=== PATIENT | female | born 1990 | race Caucasian/White ===

== ENCOUNTER → 2017-05-24 | Outpatient (CLI) | payer OTHER ==
[~2017-05-24] MED LIST: DOXY100T PO; Z.0.NO CURRENT MEDS; ZOFR4TAB3 SL
== END ==
LOC: HPND 07:43
PROVIDERS: ATTEND Obstetrics & Gynecology
DX: O26.893 Other specified pregnancy related conditions, third trimester (principal); R10.32 Left lower quadrant pain
CPT/HCPCS: 76816

== ENCOUNTER 2017-06-30 05:02 | Inpatient (IN) | payer OTHER ==
[~2017-06-30] VITALS: Ht 167.6 cm; Wt 158.8 kg
[2017-06-30] VITALS (138 sets, daily range): BP systolic 103–153; BP diastolic 35–100; PULSE 67–129; RESP 18; TEMP 97.6–99.1
[2017-06-30] MEDS ORDERED: OXYTOCIN 30 UNITS/NS 500ML PREMIX IV SCH (05:30)
[2017-06-30] MEDS ORDERED: LIDOCAINE HCL 1% 50 ML VIAL I-DERMAL PRN (05:30)
[2017-06-30] MEDS ORDERED: NS 500 ML BOLUS IV PRN (05:30)
[2017-06-30] MEDS ORDERED: LACTATED RINGER'S 1000 ML BOLUS IV PRN (05:30)
[2017-06-30] MEDS ORDERED: LIDOCAINE HCL 1% 50 ML VIAL INFIL PRN (05:30)
[2017-06-30] MEDS: LACTATED RINGER'S 1000 ML IV SCH ×2 (05:30→20:00)
[2017-06-30] MEDS ORDERED: ONDANSETRON HCL 4 MG/2 ML VIAL IV PRN (05:30)
[2017-06-30] MEDS ORDERED: NS 1000 ML IV PRN (05:30)
[2017-06-30] MEDS ORDERED: CITRIC ACID-SODIUM CITRATE LIQ 30 ML UDC PO SCH (05:30)
[2017-06-30] MEDS ORDERED: OXYTOCIN 30 UNITS 500ML PREMIX IV ONE (05:30)
[2017-06-30] MEDS ORDERED: MINERAL OIL 10 ML VIAL TOPICAL PRN (05:30)
[2017-06-30] MEDS ORDERED: PREN29TA PO (06:08)
[2017-06-30 07:06] LABS: AUTOMATED NEUTROPHIL # 11.4 TH/MM3 (1.8-7.7); BASOPHIL % 0.3 % (0.0-2.0); EOSINOPHIL # 0.2 TH/MM3 (0-0.4); EOSINOPHIL % 1.4 % (0.0-4.0); HEMO FLAGS DIFF FINAL; LYMPH % 19.2 % (9.0-44.0); MEAN CELL VOLUME 78.9 FL (80.0-100.0); MEAN CORPUSCULAR HEMOGLOBIN 25.8 PG (27.0-34.0); MEAN CORPUSCULAR HGB CONC 32.7 % (32.0-36.0); NEUT % 72.1 % (16.0-70.0); PLATELET COUNT 242 TH/MM3 (150-450); RED BLOOD COUNT 4.44 MIL/MM3 (4.00-5.30); RED CELL DISTRIBUTION WIDTH 16.2 % (11.6-17.2); WHITE BLOOD COUNT 15.8 TH/MM3 (4.0-11.0)
[2017-06-30 07:36] LABS: BLOOD, URINE NEG (NEG); CALCIUM OXALATE CRYSTALS,URINE MOD /hpf; COMMENT (UR) CULTURE INDICATED; CULTURE IF INDICATED CULTURE INDICATED; GLUCOSE,URINE NEG (NEG); KETONE, URINE NEG (NEG); MUCUS URINE FEW /lpf (OCC); NITRITE,URINE NEG (NEG); SQUAMOUS EPITHELIAL CELL URINE 13 /hpf (0-5); TRANSITIONAL EPI CELLS, URINE <1 /hpf; URINE COLOR YELLOW (YELLW/STRAW)
[2017-06-30 07:39] LABS: BACTERIA, URINE FEW /hpf
[2017-06-30] MEDS ORDERED: ePHEDrine/NS 25 MG/5 ML SYR ONE (09:20)
[2017-06-30] MEDS ORDERED: fentaNYL 2MCG-BUPIV 0.125% INJ 100 ML ONE (09:20)
[2017-06-30] MEDS ORDERED: fentaNYL 2MCG-BUPIV 0.125% 100 ML EPIDURAL SCH (10:45)
[2017-06-30] MEDS ORDERED: NO SYSTEM NARCOTICS PRN (10:45)
[2017-06-30] MEDS ORDERED: ePHEDrine/NS 25 MG/5 ML SYR IV PRN (10:45)
[2017-06-30] MEDS ORDERED: DO NOT ADMINISTER ANTICOAGULANTS PRN (10:45)
[2017-06-30] MEDS ORDERED: LIDOCAINE HCL 1.5% PF SOLN 20 ML AMP ONE (19:09)
[2017-06-30] MEDS ORDERED: OXYTOCIN 10 UNIT/ML AMP ONE (23:18)
[2017-06-30] MEDS ORDERED: ceFAZolin INJ 1,000 MG VIAL ONE (23:18)
[2017-07-01] VITALS (13 sets, daily range): BP systolic 104–137; BP diastolic 51–78; PULSE 84–106; RESP 15–26; TEMP 98.2–99.1; O2SAT 96–100
[2017-07-01] MEDS ORDERED: OXYTOCIN 30 UNITS-500ML PREMIX 500 ML IV ONE (00:45)
[2017-07-01] MEDS ORDERED: EPIDURAL-NO SYSTEMIC NARCOTICS PRN (00:45)
[2017-07-01] MEDS ORDERED: KETOROLAC TROMETHAMINE 60 MG/2 ML (IM) VIAL IM PRN ×2 (00:45)
[2017-07-01] MEDS ORDERED: EPIDURAL-NALOXONE HCL 0.4 MG/ML AMP IV PRN (00:45)
[2017-07-01] MEDS ORDERED: EPIDURAL-DIPHENHYDRAMINE HCL 50 MG/ML VIAL IV PUSH PRN (00:45)
[2017-07-01] MEDS ORDERED: EPIDURAL-DIPHENHYDRAMINE HCL 50 MG CAP PO PRN (00:45)
[2017-07-01] MEDS ORDERED: oxyCODONE/ACETAMINOPHEN 5 MG/325 MG TAB PO PRN (00:45)
[2017-07-01] MEDS ORDERED: SIMETHICONE 80 MG CHEWABLE TAB PO PRN (00:45)
[2017-07-01] MEDS ORDERED: ONDANSETRON HCL 4 MG/2 ML VIAL IV PUSH PRN (00:45)
[2017-07-01] MEDS ORDERED: SODIUM CHLORIDE 0.9% FLUSH 10 ML FLUSH IV FLUSH PRN (00:45)
[2017-07-01] MEDS ORDERED: EPIDURAL-DO NOT ADMINISTER ANTICOAGULANTS PRN (00:45)
[2017-07-01] MEDS ORDERED: MORPHINE SULFATE PF 5 MG/10 ML VIAL ONE (00:51)
--- NOTE | 2017-07-01 00:51 | PD.LABORPN ---
Subjective Subjective Pt comfortable after second epidural placed Objective Vital Signs Vital Signs Date Time Temp Pulse Resp B/P (MAP) Pulse Ox O2 Delivery O2 Flow Rate FiO2 06/30/17 23:10 87 06/30/17 23:05 97 06/30/17 23:00 85 06/30/17 23:00 88 129/79 (96) 06/30/17 22:42 18 06/30/17 22:40 104 06/30/17 22:35 80 06/30/17 22:30 81 06/30/17 22:30 82 131/67 (88) 06/30/17 22:10 84 06/30/17 22:05 81 06/30/17 22:01 82 118/66 (83) 06/30/17 22:00 85 06/30/17 21:45 18 06/30/17 21:30 78 06/30/17 21:30 81 136/66 (89) 06/30/17 20:46 105 128/64 (85) 06/30/17 20:45 18 06/30/17 20:45 102 06/30/17 20:40 116 125/65 (85) 06/30/17 20:40 107 06/30/17 20:35 108 110/67 (81) 06/30/17 20:35 102 06/30/17 20:30 108 121/68 (85) 06/30/17 20:30 99 06/30/17 20:26 118 06/30/17 20:26 122/60 (80) 06/30/17 20:25 106 06/30/17 20:20 119/62 (81) 06/30/17 20:20 120 06/30/17 20:20 102 06/30/17 20:15 109 110/49 (69) 06/30/17 20:15 114 06/30/17 20:11 129 108/35 (59) 06/30/17 20:10 95 06/30/17 20:06 88 128/83 (98) 06/30/17 20:05 92 06/30/17 20:00 92 147/92 (110) 06/30/17 20:00 87 06/30/17 19:56 96 153/86 (108) 06/30/17 19:55 87 06/30/17 19:51 84 150/86 (107) 06/30/17 19:50 87 06/30/17 19:46 97 150/87 (108) 06/30/17 19:45 90 06/30/17 19:41 119 117/60 (79) 06/30/17 19:36 97.6 85 18 124/71 (88) 06/30/17 18:02 18 06/30/17 18:00 89 135/77 (96) 06/30/17 17:21 91 122/64 (83) 06/30/17 17:05 18 06/30/17 17:01 83 126/59 (81) Objective Pelvic Exam: Cervix: [5 /100/-2- no change from prior exam at 430 ] Dilatation: [-] Effacement: [-] Station: [-] Presentation: [-] Membranes: [intact or ruptured] Uterine Contractions: [q 2-4 min at >50 mmhg-] FHT's: Category: [-] Baseline: [-] Reactive: [reactive, occ lates, occ variable- overall reassuring-] Variability: [-] Decels: [-] Weeks Gestation: 40 Gest Age Assessed Date: Jul 01, 2017 Gest Age Assessed Time: 09:00 Pt started active labor?: No Medical induction of labor?: Yes Medical induction start date: Jun 30, 2017 Medical induction start time: 05:00 Artificial rupture of membrane: Yes Artificial ROM date: Jun 30, 2017 Artifical ROM time: 07:30 Assessment/Plan Assessment and Plan 27 yo wf G1 at 40 wks induction with arrest of active phase of labor with good labor and pain control 1. rec c/s-reviewed with pt and family rec for c/s and they agree Joanne Doll MD Jul 01, 2017 00:51
[2017-07-01] MEDS ORDERED: METOCLOPRAMIDE HCL 10 MG/2 ML VIAL IV ONE (01:33)
[2017-07-01] MEDS ORDERED: LACTATED RINGER'S 1000 ML INJ 1,000 ML IV ONE (01:33)
[2017-07-01] MEDS ORDERED: LIDOCAINE HCL 2% 20 ML VIAL NERV BLOCK ONE (01:33)
[2017-07-01] MEDS ORDERED: LACTATED RINGER'S 1000 ML INJ 1,000 ML IV SCH ×2 (05:44→15:30)
--- NOTE | 2017-07-01 07:58 | HHI.OB ---
Subjective Post Day: 1 Remarks PPD # 0 s/p LTCS due to arrest of labor doing well Objective Vitals/I&O Vital Signs Date Time Temp Pulse Resp B/P (MAP) Pulse Ox O2 Delivery O2 Flow Rate FiO2 07/01/17 03:10 99.1 18 07/01/17 03:10 97 121/68 (85) 07/01/17 02:35 98.2 18 133/77 (95) 07/01/17 02:15 87 18 126/76 (93) 99 07/01/17 02:01 88 18 132/74 (93) 07/01/17 02:01 100 07/01/17 01:47 18 100 07/01/17 01:47 91 137/69 (91) 07/01/17 01:35 84 18 135/65 (88) 100 07/01/17 01:18 100 07/01/17 01:18 85 18 125/67 (86) 07/01/17 01:02 84 18 122/64 (83) 100 07/01/17 00:50 84 26 106/51 (69) 07/01/17 00:50 96 07/01/17 00:50 98.2 06/30/17 23:15 18 06/30/17 23:10 87 06/30/17 23:05 97 06/30/17 23:00 85 06/30/17 23:00 88 129/79 (96) 06/30/17 22:42 18 06/30/17 22:40 104 06/30/17 22:35 80 06/30/17 22:30 81 06/30/17 22:30 82 131/67 (88) 06/30/17 22:10 84 06/30/17 22:05 81 06/30/17 22:01 82 118/66 (83) 06/30/17 22:00 85 06/30/17 21:45 18 06/30/17 21:30 78 06/30/17 21:30 81 136/66 (89) 06/30/17 20:46 105 128/64 (85) 06/30/17 20:45 18 06/30/17 20:45 102 06/30/17 20:40 116 125/65 (85) 06/30/17 20:40 107 06/30/17 20:35 108 110/67 (81) 06/30/17 20:35 102 06/30/17 20:30 108 121/68 (85) 06/30/17 20:30 99 06/30/17 20:26 118 06/30/17 20:26 122/60 (80) 06/30/17 20:25 106 06/30/17 20:20 119/62 (81) 06/30/17 20:20 120 06/30/17 20:20 102 06/30/17 20:15 109 110/49 (69) 06/30/17 20:15 114 06/30/17 20:11 129 108/35 (59) 06/30/17 20:10 95 06/30/17 20:06 88 128/83 (98) 06/30/17 20:05 92 06/30/17 20:00 92 147/92 (110) 06/30/17 20:00 87 06/30/17 19:56 96 153/86 (108) 06/30/17 19:55 87 06/30/17 19:51 84 150/86 (107) 06/30/17 19:50 87 06/30/17 19:46 97 150/87 (108) 06/30/17 19:45 90 06/30/17 19:41 119 117/60 (79) 06/30/17 19:36 97.6 85 18 124/71 (88) 06/30/17 18:02 18 06/30/17 18:00 89 135/77 (96) 06/30/17 17:21 91 122/64 (83) 06/30/17 17:05 18 06/30/17 17:01 83 126/59 (81) 06/30/17 16:45 18 06/30/17 16:31 83 126/66 (86) 06/30/17 16:15 99.1 18 06/30/17 16:01 81 116/65 (82) 06/30/17 15:43 18 06/30/17 15:30 89 130/71 (90) 06/30/17 15:30 90 06/30/17 15:15 18 06/30/17 15:10 81 06/30/17 15:05 83 06/30/17 15:00 80 06/30/17 15:00 99.1 06/30/17 15:00 18 06/30/17 15:00 83 107/57 (74) 06/30/17 14:45 18 06/30/17 14:40 83 06/30/17 14:35 80 06/30/17 14:31 86 120/60 (80) 06/30/17 14:30 80 06/30/17 14:15 18 06/30/17 14:10 81 06/30/17 14:05 82 06/30/17 14:01 87 128/65 (86) 06/30/17 14:00 98 18 06/30/17 13:55 84 06/30/17 13:50 82 06/30/17 13:45 76 125/65 (85) 06/30/17 13:45 77 06/30/17 13:45 18 06/30/17 13:40 82 06/30/17 13:35 78 06/30/17 13:30 78 06/30/17 13:30 85 127/72 (90) 06/30/17 13:30 18 06/30/17 13:25 83 06/30/17 13:20 93 06/30/17 13:15 75 131/82 (98) 06/30/17 13:15 80 06/30/17 13:15 18 06/30/17 13:10 89 06/30/17 13:05 78 06/30/17 13:00 75 122/70 (87) 06/30/17 13:00 18 06/30/17 13:00 73 06/30/17 12:55 75 06/30/17 12:50 77 06/30/17 12:45 74 120/69 (86) 06/30/17 12:45 18 06/30/17 12:45 76 06/30/17 12:40 73 06/30/17 12:35 73 06/30/17 12:30 71 119/73 (88) 06/30/17 12:30 74 06/30/17 12:30 18 06/30/17 12:25 72 06/30/17 12:20 74 17 12:15 67 06/30/17 12:15 74 117/71 (86) 06/30/17 12:15 18 06/30/17 12:10 73 06/30/17 12:05 70 06/30/17 12:01 78 104/72 (83) 06/30/17 12:00 69 06/30/17 12:00 18 06/30/17 11:55 82 06/30/17 11:50 75 06/30/17 11:45 18 06/30/17 11:45 80 06/30/17 11:45 77 119/70 (86) 06/30/17 11:40 80 06/30/17 11:35 85 06/30/17 11:30 86 114/59 (77) 06/30/17 11:30 81 06/30/17 11:30 18 06/30/17 11:25 82 06/30/17 11:20 77 06/30/17 11:15 83 06/30/17 11:15 81 122/69 (86) 06/30/17 11:05 18 06/30/17 11:04 82 126/71 (89) 06/30/17 11:00 18 06/30/17 11:00 81 06/30/17 10:55 81 06/30/17 10:50 82 06/30/17 10:47 86 103/47 (65) 06/30/17 10:45 82 06/30/17 10:42 18 06/30/17 10:40 80 06/30/17 10:35 95 06/30/17 10:31 77 115/61 (79) 06/30/17 10:30 82 18 06/30/17 10:25 84 06/30/17 10:20 83 06/30/17 10:16 89 128/65 (86) 06/30/17 10:15 88 06/30/17 10:14 18 06/30/17 10:10 89 06/30/17 10:05 90 06/30/17 10:01 91 125/63 (83) 06/30/17 10:00 91 06/30/17 10:00 97.9 06/30/17 09:56 89 126/60 (82) 06/30/17 09:55 18 06/30/17 09:55 101 06/30/17 09:51 88 118/93 (101) 06/30/17 09:50 89 06/30/17 09:46 111 117/62 (80) 06/30/17 09:45 18 06/30/17 09:45 97 06/30/17 09:41 108 133/89 (104) 06/30/17 09:36 117 136/99 (111) 06/30/17 09:35 104 06/30/17 09:31 125 142/100 (114) 06/30/17 09:30 119 06/30/17 09:30 18 06/30/17 09:28 114 143/98 (113) 06/30/17 09:00 18 Objective Remarks GENERAL: Well-nourished, well-developed patient. CARDIOVASCULAR: Regular rate and rhythm without murmurs, gallops, or rubs. RESPIRATORY: Breath sounds equal bilaterally. No accessory muscle use. ABDOMEN/GI: Abdomen soft, non-tender. Fundus: Firm, non-tender at umbilicus....inc healing nicely GENITOURINARY: Light to moderate bleeding. EXTREMITIES: No cyanosis or edema, non-tender, without signs of DVT. Medications and IVs Current Medications Medications (Trade) Dose Ordered Sig/Yara Route Start Time Stop Time Status Last Admin Miscellaneous Information No systemic narcotics to be given except... UNSCH PRN .XX 06/30/17 10:45 07/01/17 10:44 Miscellaneous Information DO NOT ADMINISTER ANY ANTICOAGUL... UNSCH PRN .XX 06/30/17 10:45 07/01/17 10:44 Miscellaneous Information NO SYSTEMIC NARCOTICS TO BE GIVEN FO... UNSCH PRN .XX 07/01/17 00:45 07/02/17 00:44 (Narcan Inj) 0.4 mg UNSCH PRN IV 07/01/17 00:45 07/02/17 00:44 (Benadryl Inj) 25 mg Q6H PRN IV PUSH 07/01/17 00:45 07/02/17 00:44 (Benadryl) 50 mg Q6H PRN PO 07/01/17 00:45 07/02/17 00:44 Miscellaneous Information ALL NURSING DEPARTMENTS UNSCH PRN .XX 07/01/17 00:45 07/02/17 00:44 Lactated Ringer's 1,000 ml @ 100 mls/hr Q10H IV 07/01/17 05:44 07/02/17 01:43 Oxytocin 500 ml @ 100 mls/hr UNSCH X1 PRN IV 07/01/17 10:45 07/02/17 10:44 (NS Flush) 2 ml BID IV FLUSH 07/01/17 09:00 (NS Flush) 2 ml UNSCH PRN IV FLUSH 07/01/17 00:45 (Mylicon Chew) 80 mg QID PRN PO 07/01/17 00:45 (Motrin) 600 mg Q6H PRN PO 07/01/17 00:45 (Toradol Inj) 60 mg UNSCH X1 PRN IM 07/01/17 00:45 07/02/17 00:44 (Toradol Inj) 30 mg Q6H PRN IM 07/01/17 00:45 07/02/17 00:44 (Percocet 5-325 Mg) 1 tab Q4H PRN PO 07/01/17 00:45 (Percocet 5-325 Mg) 2 tab Q4H PRN PO 07/01/17 00:45 Cefazolin Sodium 1000 mg/Sodium Chloride 100 ml @ 200 mls/hr Q8H IV 07/01/17 01:00 07/01/17 09:29 07/01/17 04:25 (Loree-Colace) 2 tab Q12H PRN PO 07/01/17 00:45 (M-M-R Ii Inj) 0.5 ml ONCE ONCE SQ 07/02/17 16:00 07/02/17 16:01 (Boostrix Inj) 0.5 ml ONCE ONCE IM 07/02/17 16:00 07/02/17 16:01 (Zofran Inj) 4 mg Q6H PRN IV PUSH 07/01/17 00:45 Assessment/Plan Assessment and Plan POD # 0 doing well, routine care Joanne Doll MD Jul 01, 2017 07:57
[2017-07-01] MEDS: DOCUSATE SODIUM 50 MG/SENNA 8.6 MG TAB PO PRN (08:57)
[2017-07-01] MEDS: oxyCODONE/ACETAMINOPHEN 5 MG/325 MG TAB PO PRN ×2 (08:58→23:26)
[2017-07-01] MEDS: IBUPROFEN 600 MG TAB PO PRN ×3 (08:58→23:26)
[2017-07-01] MEDS ORDERED: SODIUM CHLORIDE 0.9% FLUSH 10 ML FLUSH IV FLUSH SCH (09:00)
[2017-07-01] MEDS ORDERED: OXYTOCIN 30 UNITS-500ML PREMIX 500 ML IV PRN (10:45)
--- NOTE | 2017-07-01 11:05 | MP ---
cc: EMILY LEIJA M.D. DATE OF SURGERY 07/01/2017 PREOPERATIVE DIAGNOSIS Intrauterine at 40 weeks gestation with arrest of active phase of labor. POSTOPERATIVE DIAGNOSIS Intrauterine at 40 weeks gestation with arrest of active phase of labor. PROCEDURE PERFORMED A primary low transverse section SUPERVISOR INCISING Dr. Emily Leija ANESTHESIA Epidural FINDINGS IN SURGERY Included a viable male infant weighing 6 pounds 14 ounces with 's 3 and 8. Normal-appearing tubes and ovaries bilaterally in an occiput posterior position noted. BLOOD LOSS 800 cc COMPLICATIONS None PROCEDURE IN DETAIL After proper consents were obtained, blood had already been typed and screened, the patient was taken to the operating room where an adequate level of epidural anesthesia was achieved. She was then sterilely prepped and draped, a Leone catheter had already been placed. Using a sharp knife, a Pfannenstiel's skin incision was made and carried that down to the fascia using the Bovie cautery. The fascia was nicked in the midline and extended superiorly and laterally on each side. We then bluntly dissected the muscles off of the fascia. The peritoneum was identified, grasped with two hemostats and entered sharply with a Metzenbaum scissors. This incision was extended superiorly and inferiorly paying close attention to the bladder. A bladder blade was placed. Bladder flap was developed. Bladder blade was replaced. We made a transverse incision in the lower uterine segment, extended that using the finger fracture technique. We had a controlled delivery of the vertex in the occiput posterior with the body following, bulb suction to the oropharynx and nares with the neonatology nurse in attendance. We did 45 seconds of delayed cord clamping, then we clamped the cord, cut in between with the team in attendance. At that time, the started to have a lower heart rate and poor respiratory effort so resuscitation was started and the nurse was called in. We then obtained a cord blood sample. Placenta was removed, the uterus was exteriorized, wiped clean of clots and debris. The uterine incision was closed with a #1 chromic suture starting at each apex meeting in midline in a running interlocking fashion. Excellent hemostasis was noted. Irrigation performed in the abdominopelvic cavity. The uterus was placed back into the cavity. The incision was noted to be hemostatic. We then closed the muscles using a #1 chromic suture x1. We then closed the fascia starting at each apex and meeting in midline in a running fashion. Irrigation was performed of the subcu. Hemostasis achieved with Bovie cautery. There was no space to close. We closed the skin using veronica. All sponge, lap and needle counts were correct x3. The patient was stable to the recovery room. MD GUERO Jaimes/SARAH /7:25 AM /10:51 AM
[2017-07-02 05:58] LABS: BASOPHIL % 0.2 % (0.0-2.0); EOSINOPHIL # 0.1 TH/MM3 (0-0.4); EOSINOPHIL % 0.7 % (0.0-4.0); HEMATOCRIT 27.4 % (35.0-46.0); HEMO FLAGS DIFF FINAL; LYMPH % 11.7 % (9.0-44.0); LYMPHOCYTE # 1.6 TH/MM3 (1.0-4.8); MEAN CELL VOLUME 79.4 FL (80.0-100.0); MEAN CORPUSCULAR HEMOGLOBIN 25.3 PG (27.0-34.0); MEAN CORPUSCULAR HGB CONC 31.9 % (32.0-36.0); MONO % 7.2 % (0.0-8.0); NEUT % 80.2 % (16.0-70.0); PLATELET COUNT 174 TH/MM3 (150-450); RED BLOOD COUNT 3.45 MIL/MM3 (4.00-5.30); RED CELL DISTRIBUTION WIDTH 16.5 % (11.6-17.2); WHITE BLOOD COUNT 13.8 TH/MM3 (4.0-11.0)
[2017-07-02 08:15] VITALS: BP 128/67; PULSE 88; RESP 18; TEMP 98.8
[2017-07-02] MEDS: DOCUSATE SODIUM 50 MG/SENNA 8.6 MG TAB PO PRN (08:26)
[2017-07-02] MEDS: IBUPROFEN 600 MG TAB PO PRN ×2 (08:26→15:01)
[2017-07-02] MEDS: oxyCODONE/ACETAMINOPHEN 5 MG/325 MG TAB PO PRN ×2 (08:26→15:00)
[2017-07-02] MEDS ORDERED: OXYC1TAB63 PO (13:04)
[2017-07-02] MEDS ORDERED: IBUP-232 PO (13:04)
--- NOTE | 2017-07-02 13:05 | HHI.DCPOC ---
Discharge Care Plan Diagnosis: (1) delivery, delivered, current hospitalization Your Health Problems Are: delivery Report Symptoms to Your Doctor -Temperature above 100.5 degrees -Redness, of incision or excessive or foul smelling drainage -Unusual pain or calf pain -Increased vaginal bleeding -Painful or difficulty urinating -Feelings of extreme sadness or anxiety after 2 weeks Goals to Promote Your Health * To prevent worsening of your condition and complications * To maintain your health at the optimal level Directions to Meet Your Goals Take your medications as prescribed Follow your dietary instruction Follow activity as directed Ensure plenty of rest for recovery Drink fluids for hydration Keep your appointments as scheduled Take your immunizations and boosters as scheduled If your symptoms worsen call your PCP, if no PCP go to Urgent Care Center or Emergency Room Smoking is Dangerous to Your Health. Avoid second hand smoke Call the 24-hour crisis hotline for domestic abuse at Sanna Corona MD Jul 02, 2017 13:05
[2017-07-02] MEDS ORDERED: DIPHTH/TETANUS/ACEL PERTUSSIS (BOOSTER) 0.5 ML VIAL/PFS IM ONE (16:00)
[2017-07-02] MEDS ORDERED: MEASLES, MUMPS, RUBELLA VACCINE 0.5 ML VIAL SQ ONE (16:00)
== END 2017-07-02 18:25 | disposition home or self-care (01) | DRG 766 ==
LOC: H2EB 05:02 → H1EA 07-01 02:54
PROVIDERS: ADMIT Obstetrics & Gynecology; ATTEND Obstetrics & Gynecology
PROC: 3E033VJ Introduction of Other Hormone into Peripheral Vein, Percutaneous Approach (ICD-10-PCS; 2017-06-30)
PROC: 10907ZC Drainage of Amniotic Fluid, Therapeutic from Products of Conception, Via Natural or Artificial Opening (ICD-10-PCS; 2017-06-30)
PROC: 10D00Z1 Extraction of Products of Conception, Low, Open Approach (ICD-10-PCS; principal; 2017-07-01)
DX: O62.1 Secondary uterine inertia (principal); Z37.0 Single live birth; Z3A.40 40 weeks gestation of pregnancy
CPT/HCPCS: 59025; 81001; 85025; 86900; 86901; 87086; J0690; J2274; J2590; J2765; J7120

== ENCOUNTER 2017-07-08 02:38 | Observation (INO) | payer OTHER ==
[~2017-07-08] VITALS: Ht 167.6 cm; Wt 161.5 kg
[2017-07-08] VITALS (7 sets, daily range): BP systolic 132–176; BP diastolic 81–97; PULSE 85–100; RESP 16–18; TEMP 97.9–98.3; O2SAT 97
[~2017-07-08 02:38] MED LIST changes: -DOXY100T PO; +IBUP-232 PO; +OXYC1TAB63 PO; +PREN29TA PO; -Z.0.NO CURRENT MEDS; -ZOFR4TAB3 SL
--- NOTE | 2017-07-08 03:16 | PD ---
HPI Chief Complaint Incisional discharge/bleeding from incision Travel History International Travel<30 Days: No Contact w/Intl Traveler<30Days: No Known Affected Area: No History of Present Illness HPI Presents with c/o bleeding from incision. Bleeding noted while resting in bed. S/p C/S per Dr. Torres on 07-01-17. Discharged on 07-02-17. Patient reports some pain at incision site. Denies F/C. No nausea/vomiting. Allergies-Medications (Allergen,Severity, Reaction): Coded Allergies: No Known Allergies (Verified , 06/30/17) Home Meds Active Scripts Oxycodone-Acetaminophen (Oxycodone-Acetaminophen) 5-325 mg Tab, 2 TAB PO Q4H Y for PAIN SCALE 6 TO 10 for 30 Days, #30 TAB Prov:Sanna Corona MD 07/02/17 Ibuprofen (Ibuprofen) 600 Mg Tab, 600 MG PO Q6H Y for CRAMPING for 30 Days, #60 TAB Prov:Sanna Coroan MD 07/02/17 Reported Medications Vit-Iron Carbonyl ( Plus Iron 29-1 mg) 29 Mg Iron-1 Mg Tab, 1 TAB PO DAILY for Nutritional Supplement, #30 TAB 0 Refills 06/30/17 Physical Exam Vital Signs Date Time Temp Pulse Resp B/P (MAP) Pulse Ox O2 Delivery O2 Flow Rate FiO2 07/08/17 02:39 98.3 100 16 176/97 (123) 97 Room Air BP 141/89 Narrative GENERAL: Well-nourished, well-developed patient. SKIN: Warm and dry. HEAD: Normocephalic and atraumatic. EYES: No scleral icterus. No injection or drainage. ENT: No nasal drainage noted. Mucous membranes pink. Airway patent. NECK: Supple, trachea midline. No JVD. CARDIOVASCULAR: Regular rate and rhythm without murmurs, gallops, or rubs. RESPIRATORY: Breath sounds equal bilaterally. No accessory muscle use. BREASTS: Bilateral exam showed no masses , no retractions, no nipple discharge. ABDOMEN/GI: Abdomen soft, non-tender, bowel sounds present, no rebound, no guarding- incision with veronica in place, bloody drainage, tracking bilaterally 4-5cm Gravid to [-] weeks size Fundal Height: [-] GENITOURINARY: External Genitalia: intact and normal in appearance BUS glands: [-] Cervix: [-] Dilatation: [-] Effacement: [-] Station: [-] Presentation: [-] Membranes: [intact or ruptured] Uterine Contractions: [-] FHT's: Category: [-] Baseline: [-] Reactive: [-] Variability: [-] Decels: [-] EXTREMITIES: No cyanosis or edema. BACK: Nontender without obvious deformity. No CVA tenderness. NEUROLOGICAL: Awake and alert. Motor and sensory grossly within normal limits. Five out of 5 muscle strength in all muscle groups. Normal speech. MDM Interpretation(s) S/p C/S on 07-01-17 with seroma/wound disruption. Plan Will admit for observation. Dr. Giron notified. Pain medication. Patient to stay on L&D as no Med-Surg beds currently availiable. All questions answered. Diagnosis Diagnosis: Primary Impression: Post-operative complication Additional Impression: wound disruption Oneida Ramírez MD Jul 08, 2017 03:16
[2017-07-08] MEDS ORDERED: LACTATED RINGER'S 1000 ML INJ 1,000 ML IV SCH (03:59)
[2017-07-08] MEDS ORDERED: SODIUM CHLORIDE 0.9% FLUSH 10 ML FLUSH IV FLUSH PRN (04:00)
[2017-07-08] MEDS ORDERED: PROMETHAZINE INJ 25 MG/ML VIAL IM ONE (04:00)
[2017-07-08] MEDS ORDERED: MEPERIDINE HCL 25 MG/ML VIAL IV PUSH ONE (04:00)
--- NOTE | 2017-07-08 07:49 | HHI.HP ---
HPI Chief Complaint incision leaked serous fluid at 1 am Date Seen: Jul 08, 2017 Time Seen: 07:30 Travel History International Travel<30 Days: No Contact w/Intl Traveler<30Days: No Known Affected Area: No History of Present Illness HPI Patient had CS 1 week ago and had leakage of fluid History Past Medical History Medical History: Denies Significant Hx Past Surgical History Narrative Surgical CS 1 week ago Family History Family History: Negative Social History Alcohol Use: No Tobacco Use: No Substance Abuse: No Allergies-Medications (Allergen,Severity, Reaction): Coded Allergies: No Known Allergies (Verified , 06/30/17) Home Meds Active Scripts Oxycodone-Acetaminophen (Oxycodone-Acetaminophen) 5-325 mg Tab, 2 TAB PO Q4H Y for PAIN SCALE 6 TO 10 for 30 Days, #30 TAB Prov:Sanna Corona MD 07/02/17 Ibuprofen (Ibuprofen) 600 Mg Tab, 600 MG PO Q6H Y for CRAMPING for 30 Days, #60 TAB Prov:Sanna Corona MD 07/02/17 Reported Medications Vit-Iron Carbonyl ( Plus Iron 29-1 mg) 29 Mg Iron-1 Mg Tab, 1 TAB PO DAILY for Nutritional Supplement, #30 TAB 0 Refills 06/30/17 Review of Systems Except as stated in HPI: all other systems reviewed are Neg Physical Exam Vital Signs Date Time Temp Pulse Resp B/P (MAP) Pulse Ox O2 Delivery O2 Flow Rate FiO2 07/08/17 07:38 97.9 07/08/17 07:30 18 07/08/17 05:12 18 07/08/17 05:06 85 138/81 (100) 07/08/17 02:39 98.3 100 16 176/97 (123) 97 Room Air Narrative GENERAL: Well-nourished, well-developed patient. SKIN: Warm and dry. HEAD: Normocephalic and atraumatic. EYES: No scleral icterus. No injection or drainage. ENT: No nasal drainage noted. Mucous membranes pink. Airway patent. NECK: Supple, trachea midline. No JVD. CARDIOVASCULAR: Regular rate and rhythm without murmurs, gallops, or rubs. RESPIRATORY: Breath sounds equal bilaterally. No accessory muscle use. BREASTS: Bilateral exam showed no masses , no retractions, no nipple discharge. ABDOMEN/GI: Abdomen soft, non-tender, bowel sounds present, no rebound, no guarding incision clean and dry staplesremoved Gravid to [-] weeks size Fundal Height: [-] EXTREMITIES: No cyanosis or edema. BACK: Nontender without obvious deformity. No CVA tenderness. NEUROLOGICAL: Awake and alert. Motor and sensory grossly within normal limits. Five out of 5 muscle strength in all muscle groups. Normal speech. Caprini VTE Risk Assessment Caprini VTE Risk Assessment: No/Low Risk (score <= 1) Caprini Risk Assessment Model Point Value = 1 Point Value = 2 Point Value = 3 Point Value = 5 Age 41-60 Minor surgery BMI > 25 kg/m2 Swollen legs Varicose veins or History of unexplained or recurrent spontaneous Oral contraceptives or hormone replacement Sepsis (< 1 month) Serious lung disease, including pneumonia (< 1 month) Abnormal pulmonary function Acute myocardial infarction Congestive heart failure (< 1 month) History of inflammatory bowel disease Medical patient at bed rest Age 61-74 Arthroscopic surgery Major open surgery (> 45 min) Laparoscopic surgery (> 45 min) Malignancy Confined to bed (> 72 hours) Immobilizing plaster cast Central venous access Age >= 75 History of VTE Family history of VTE Factor V Leiden Prothrombin [id number] Lupus anticoagulant Anticardiolipin antibodies Elevated serum homocysteine Heparin-induced thrombocytopenia Other congenital or acquired thrombophilia Stroke (< 1 month) Elective arthroplasty Hip, pelvis, or leg fracture Acute spinal cord injury (< 1 month) Prophylaxis Regimen Total Risk Factor Score Risk Level Prophylaxis Regimen 0-1 Low Early ambulation 2 Moderate Order ONE of the following: *Sequential Compression Device (SCD) *Heparin 5000 units SQ BID 3-4 Higher Order ONE of the following medications: *Heparin 5000 units SQ TID *Enoxaparin/Lovenox 40 mg SQ daily (WT < 150 kg, CrCl > 30 mL/min) *Enoxaparin/Lovenox 30 mg SQ daily (WT < 150 kg, CrCl > 10-29 mL/min) *Enoxaparin/Lovenox 30 mg SQ BID (WT < 150 kg, CrCl > 30 mL/min) AND/OR *Sequential Compression Device (SCD) 5 or more Highest Order ONE of the following medications: *Heparin 5000 units SQ TID (Preferred with Epidurals) *Enoxaparin/Lovenox 40 mg SQ daily (WT < 150 kg, CrCl > 30 mL/min) *Enoxaparin/Lovenox 30 mg SQ daily (WT < 150 kg, CrCl > 10-29 mL/min) *Enoxaparin/Lovenox 30 mg SQ BID (WT < 150 kg, CrCl > 30 mL/min) AND *Sequential Compression Device (SCD) Data Data Vital Signs Reviewed: Yes Orders Orders Place In Observation (07/08/17 ) Ob (2e) Additional Admit Info (07/08/17 03:50) Code Status (07/08/17 03:59) Vital Signs (Adult) Q4H (07/08/17 03:59) Activity Oob Ad Reba (07/08/17 03:59) Lactated Ringer's 1000 Ml Inj (Lr 1000 M (07/08/17 03:59) Sodium Chloride 0.9% Flush (Ns Flush) (07/08/17 09:00) Sodium Chloride 0.9% Flush (Ns Flush) (07/08/17 04:00) Complete Blood Count With Diff (07/08/17 03:59) Alex Bilateral/Knee High ANDREW.QSHIFT (07/08/17 03:59) Comprehensive Metabolic Panel (07/08/17 03:59) Meperidine Inj (Demerol Inj) (07/08/17 04:00) Promethazine Inj (Phenergan Inj) (07/08/17 04:00) Assessment/Plan Problem List: (1) Abdominal wall seroma ICD Codes: T88.8XXA - Other specified complications of surgical and medical care, not elsewhere classified, initial encounter; T79.2XXA - Traumatic secondary and recurrent hemorrhage and seroma, initial encounter (2) Post-operative complication ICD Codes: T81.9XXA - Unspecified complication of procedure, initial encounter Status: Acute Plan: dc home with RX Christophe Gilliland MD Jul 08, 2017 07:49
[2017-07-08] MEDS ORDERED: CEPH-459 PO (07:52)
--- NOTE | 2017-07-08 07:54 | HHI.DCPOC ---
Discharge Care Plan Diagnosis: (1) Post-operative complication (2) Abdominal wall seroma Report Symptoms to Your Doctor -Temperature above 100.5 degrees -Redness, of incision or excessive or foul smelling drainage -Unusual pain or calf pain -Increased vaginal bleeding -Painful or difficulty urinating -Feelings of extreme sadness or anxiety after 2 weeks Goals to Promote Your Health * To prevent worsening of your condition and complications * To maintain your health at the optimal level Directions to Meet Your Goals Take your medications as prescribed Follow your dietary instruction Follow activity as directed Ensure plenty of rest for recovery Drink fluids for hydration Keep your appointments as scheduled Take your immunizations and boosters as scheduled If your symptoms worsen call your PCP, if no PCP go to Urgent Care Center or Emergency Room Smoking is Dangerous to Your Health. Avoid second hand smoke Call the 24-hour crisis hotline for domestic abuse at Christophe Giron MD Jul 08, 2017 07:54
--- NOTE | 2017-07-08 07:55 | HHI.DS ---
Admission Date Jul 08, 2017 at 03:51 Discharge Date: Jul 08, 2017 Admitting Diagnosis Diagnosis: (1) Abdominal wall seroma Diagnosis: Principal ICD Codes: T88.8XXA - Other specified complications of surgical and medical care, not elsewhere classified, initial encounter; T79.2XXA - Traumatic secondary and recurrent hemorrhage and seroma, initial encounter Brief History Patient had CS 1 week ago and had leakage of fluid Hospital Course DC home and had incision leaking now improved Pt Condition on Discharge: Good Discharge Disposition: Discharge Home Discharge Instructions Activities You Can Perform: Regular-No Restrictions Follow up Referrals: [facility] - 2 Days @ [facility] with Christophe Giron MD New Medications: Cephalexin (Keflex) 250 Mg Cap 250 MG PO Q6H for Infection, #28 CAP 0 Refills Continued Medications: Vit-Iron Carbonyl ( Plus Iron 29-1 mg) 29 Mg Iron-1 Mg Tab 1 TAB PO DAILY for Nutritional Supplement, #30 TAB 0 Refills Discontinued Medications: Ibuprofen (Ibuprofen) 600 Mg Tab 600 MG PO Q6H PRN for CRAMPING for 30 Days, #60 TAB Oxycodone-Acetaminophen (Oxycodone-Acetaminophen) 5-325 mg Tab 2 TAB PO Q4H PRN for PAIN SCALE 6 TO 10 for 30 Days, #30 TAB Christophe Giron MD Jul 08, 2017 07:55
[2017-07-08] MEDS ORDERED: SODIUM CHLORIDE 0.9% FLUSH 10 ML FLUSH IV FLUSH SCH (09:00)
== END 2017-07-08 08:12 | disposition home or self-care (01) ==
LOC: NEPE 02:38 → H2EA 03:51
PROVIDERS: ADMIT Obstetrics & Gynecology; ATTEND Obstetrics & Gynecology
DX: T81.30XA Disruption of wound, unspecified, initial encounter (principal); O90.2 Hematoma of obstetric wound
CPT/HCPCS: 96372; 96374; 99285; G0378; J2175; J2550